=== PATIENT | male | born 1950 | race Caucasian/White ===

== ENCOUNTER 2023-08-04 21:54 | Emergency (ER) | payer MEDICARE | END 2023-08-05 00:06 | disposition home or self-care (01) | LOC: CSHERS 21:54 | DX: S80.12XA Contusion of left lower leg, initial encounter (principal); E78.00 Pure hypercholesterolemia, unspecified; E11.9 Type 2 diabetes mellitus without complications; I48.91 Unspecified atrial fibrillation; Z79.4 Long term (current) use of insulin; Z87.891 Personal history of nicotine dependence; Z79.01 Long term (current) use of anticoagulants; W10.9XXA Fall (on) (from) unspecified stairs and steps, initial encounter ==

== ENCOUNTER 2023-10-02 13:03 | Outpatient (CLI) | payer MEDICARE | END 2023-10-02 13:04 | disposition home or self-care (01) | LOC: CSHWCC 13:03 | PROVIDERS: ATTEND Nurse Practitioner Family | DX: L97.221 Non-pressure chronic ulcer of left calf limited to breakdown of skin (principal); I87.312 Chronic venous hypertension (idiopathic) with ulcer of left lower extremity; I87.2 Venous insufficiency (chronic) (peripheral) | CPT/HCPCS: 97597; G0463; 99213 ==